=== PATIENT | female | born 1980 | race Caucasian/White ===

== ENCOUNTER → 2018-03-31 | Day surgery (SDC) | payer OTHER ==
[2018-03-29 11:17] VITALS: BMI 54.1
[~2018-03-31] MED LIST: BUPIVACAIN-EPI 0.5%-1:200,000 30 ML VIAL SQ ONE; DEXAMETHASONE SOD PHOSPHATE 10 MG/ML 1 ML VIAL IV ONE; HYDROmorphone 0.5 MG/0.5 ML SYRINGE IVP PRN; KETAMINE 10 MG/ML 20 ML VIAL ONE; LACTATED RINGERS 1,000 ML IV SCH; LIDOCAINE 1% 20 ML VIAL (10MG/ML) FOR IV START INTRADERMA PRN; LIDOCAINE 2% INJ 20 MG/ML SQ ONE; MIDAZOLAM 2 MG/2 ML VIAL IV PRN; MIDAZOLAM 2 MG/2 ML VIAL ONE; ONDANSETRON 4 MG/2 ML VIAL IVP ONE; PROPOFOL 10 MG/ML 20 ML VIAL IV ONE; Pre Op ABX Message 1 EACH MISC MISCELLANE ONE; fentaNYL (PF) 50 MCG/ML 2 ML AMP ONE
[2018-03-31 12:43] VITALS: RESP 16; TEMP 97.2
[2018-03-31 16:17] VITALS: BP 128/85; PULSE 82
--- NOTE | 2018-04-01 08:16 | P.OP ---
Date of Procedure: 03/31/18 Preoperative Diagnosis: Right carpal tunnel syndrome Postoperative Diagnosis: Right carpal tunnel syndrome Procedure(s) Performed: Right endoscopic carpal tunnel release Anesthesia: MAC, local Surgeon: Matthew Fuller Estimated Blood Loss (ml): 1 Condition: stable Disposition: PACU Indications for Procedure: The patient is a 38 year-old female who was diagnosed with right carpal tunnel syndrome. Surgical treatment was recommended. Risks and benefits were discussed in the office. Questions were again invited and answered in preop. The patient expressed understanding and wished to proceed with surgery. Consent forms were signed. The operative site was confirmed and marked. Description of Procedure: The patient was positioned supine with the operative limb on an arm board. Monitored anesthesia was administered uneventfully. A tourniquet was placed on the arm. A time-out was performed which confirmed the patient, the operative side, site and the procedure to be performed. All team members expressed agreement. The right upper extremity was then prepped and draped in standard, sterile fashion. Local anesthetic was injected into the subcutaneous tissues around the planned incision. The limb was exsanguinated with an Esmarch and the tourniquet was inflated. A transverse incision was marked just proximal to the wrist flexion crease, in line with the radial border of the ring finger. The skin was sharply incised and the subcutaneous tissues were spread. The volar carpal fascia was identified and sharply incised. A synovial elevator was used to release adhesions on the underside of the transverse carpal ligament. A dilator was used to sound and enlarge the carpal tunnel. The hamate hook was palpable ulnarly. The side-specific guide and camera were inserted. The ligament was clearly visualized above. The endoscopic blade was inserted and the distal half of the ligament was sharply divided. Residual transverse fibers were released distally and then the proximal portion of the ligament was incised. Wide release of ligament was visually confirmed. The camera was removed. Under direct visualization with loupe magnification, the volar carpal fascia was released distally and proximally with scissors. The tourniquet was released and good hemostasis confirmed. The wound was thoroughly irrigated and the incision was closed with interrupted 4-0 Nylon sutures. Additional local anesthetic was injected for postoperative pain control. A soft, sterile dressing was applied. All sponge and needle counts were correct at the end of the case. The patient tolerated the procedure well and was transferred to recovery in stable condition.
== END | disposition home or self-care (01) ==
LOC: OR 11:41
PROVIDERS: ATTEND Orthopaedic Surgery
DX: G56.03 Carpal tunnel syndrome, bilateral upper limbs (principal); F32.9 Major depressive disorder, single episode, unspecified; G43.909 Migraine, unspecified, not intractable, without status migrainosus; F41.9 Anxiety disorder, unspecified; E66.01 Morbid (severe) obesity due to excess calories; Z68.43 Body mass index [BMI] 50.0-59.9, adult; Z79.899 Other long term (current) drug therapy; Z90.710 Acquired absence of both cervix and uterus
CPT/HCPCS: 29848; J2001; J2250; J1100; J2405; J3010; J2704

== ENCOUNTER 2018-06-23 12:52 | Day surgery (SDC) | payer OTHER ==
[2018-06-20 14:01] VITALS: BMI 54.1
[~2018-06-23 12:52] MED LIST changes: -BUPIVACAIN-EPI 0.5%-1:200,000 30 ML VIAL SQ ONE; -KETAMINE 10 MG/ML 20 ML VIAL ONE; -LIDOCAINE 2% INJ 20 MG/ML SQ ONE; -MIDAZOLAM 2 MG/2 ML VIAL ONE; -PROPOFOL 10 MG/ML 20 ML VIAL IV ONE; +fentaNYL (PF) 50 MCG/ML 2 ML AMP IV PRN; -fentaNYL (PF) 50 MCG/ML 2 ML AMP ONE
[2018-06-23 13:12] VITALS: RESP 16; TEMP 97.4
[2018-06-23] MEDS ORDERED: PROPOFOL 10 MG/ML 20 ML VIAL IV ONE (16:43)
[2018-06-23] MEDS ORDERED: KETAMINE 10 MG/ML 20 ML VIAL ONE (16:43)
[2018-06-23] MEDS ORDERED: MIDAZOLAM 2 MG/2 ML VIAL ONE (16:43)
[2018-06-23] MEDS ORDERED: fentaNYL (PF) 50 MCG/ML 2 ML AMP ONE (16:43)
[2018-06-23] MEDS ORDERED: LIDOCAINE 1%-EPI 1:100,000 30 ML VIAL SQ ONE (17:05)
[2018-06-23] MEDS ORDERED: BUPIVACAINE (PF) 0.5% 30 ML VIAL SQ ONE ×2 (17:19)
[2018-06-23] MEDS ORDERED: LIDOCAINE 1%-EPI 1:100,000 20 ML VIAL SQ ONE ×2 (17:19)
[2018-06-23] MEDS ORDERED: LACTATED RINGERS 1,000 ML IV ONE (17:45)
[2018-06-23] MEDS ORDERED: HYDROcodone/APAP 5-325MG 1 EACH TAB PO ONE (18:18)
--- NOTE | 2018-06-23 18:26 | P.OP ---
Date of Procedure: 06/23/18 Preoperative Diagnosis: 1. Left carpal tunnel syndrome 2. Left wrist mass - likely volar ganglion cyst Postoperative Diagnosis: 1. Left carpal tunnel syndrome 2. Localized, aseptic flexor tenosynovitis Procedure(s) Performed: 1. Left endoscopic carpal tunnel release 2. Limited flexor tenosynovectomy Anesthesia: MAC, local Surgeon: Matthew Fuller Estimated Blood Loss (ml): 2 Pathology: none sent Condition: stable Disposition: same day Indications for Procedure: The patient is a 38-year-old female who was diagnosed with bilateral carpal tunnel syndrome. She previously underwent surgical release of her right side and now returns for the left. Treatment options (and associated risks and benefits) were discussed in the office. The patient elected to proceed with surgical release. She also had a lump in her left wrist for many years. This was presumptively diagnosed as a ganglion cyst. She elected to have this removed as well. In preop, the patient denied any additional questions or concerns. Consent forms were signed. The operative site was confirmed and marked. Description of Procedure: The patient was positioned supine with the operative limb on an arm board. A tourniquet was placed on the operative arm. Anesthesia was administered uneventfully. A time-out was performed, confirming patient identifiers, the operative side, site and the procedure to be performed: all team members expressed agreement. Using aseptic technique, local anesthetic was injected into the subcutaneous tissues proximal to the planned incision. The left upper extremity was then prepped and draped in standard, sterile fashion. The limb was exsanguinated with an Esmarch and the tourniquet was inflated. Loupe magnification was used throughout the case for optimum visualization. A transverse incision was marked proximal to the wrist flexion crease, overlying the mass identified by the patient. The skin was sharply incised and the subcutaneous tissues were bluntly spread. Superficial vessels were coagulated as needed with bipolar cautery. The patient had a prominent palmaris longus tendon with a distal muscle belly. This was carefully mobilized. The volar carpal fascia was identified and sharply incised. A synovial elevator was used to release adhesions on the underside of the transverse carpal ligament. A dilator was inserted to sound and enlarge the carpal tunnel. The hamate hook was palpable ulnarly. The side-specific guide and camera were inserted. The transverse carpal ligament was clearly visualized above. The distal edge of the ligament was identified and palpated with a probe. A rasp was used to clear the remaining synovial adhesions. The endoscopic blade was inserted and the distal half of the ligament was sharply incised. Residual distal transverse fibers were released and then the proximal portion of the ligament was divided. Wide release of ligament was visually confirmed. The camera was removed. The volar carpal fascia proximal to the incision was released with scissors under direct visualization. At the level of the incision, the median nerve was found to be encased in thickened perineural tissue. A localized neurolysis was performed to liberate and mobilize the nerve. The wound was visibly and palpably explored. No discrete soft tissue mass was identified. Some thickened, nodular tenosynovium was identified within the flexor tendons at this level and was sharply resected. The tourniquet was released and good hemostasis obtained with bipolar cautery. The wound was thoroughly irrigated with normal saline. The incision was closed with interrupted 4-0 Nylon sutures. Additional local anesthetic with epinephrine was injected for postoperative pain control and adjunctive hemostasis. A soft, sterile dressing was applied. All sponge, needle and instrument counts were correct at the end of the case. The patient tolerated the procedure well and was transferred to recovery in stable condition.
[2018-06-23 18:32] VITALS: BP 162/77; PULSE 68
== END 2018-06-23 18:52 | disposition home or self-care (01) ==
LOC: OR 12:52
PROVIDERS: ATTEND Orthopaedic Surgery
DX: G56.02 Carpal tunnel syndrome, left upper limb (principal); I10 Essential (primary) hypertension; F32.9 Major depressive disorder, single episode, unspecified; F41.9 Anxiety disorder, unspecified; Z79.899 Other long term (current) drug therapy
CPT/HCPCS: 29848; 25115; J2250; J3010; J2704